=== PATIENT | male | born 1970 | race Hispanic/Latino ===

== ENCOUNTER 2019-06-03 15:53 | Outpatient (CLI) | payer OTHER ==
--- NOTE | 2019-06-03 16:31 | ULT ---
EXAM: US Testicular W Doppler PROVIDED CLINICAL HISTORY: Intermittent scrotal pain for one week. COMPARISON: None FINDINGS: The testicles demonstrate a normal sonographic appearance bilaterally without evidence of a testicula r mass. A homogeneous echotexture is seen involving each testicle. The right testicle measures 5.2 cm x 2.2 cm x 3.8 cm with the left testicle measuring 5.1 cm x 1.8 cm x 3.6 cm. A few tiny anechoic structures are seen in the right epididymis measuring 3 mm with a tiny 4 mm anech oic structure seen in the left epididymis likely representing tiny epididymal cysts. Very small right hydrocele is present. IMPRESSION: 1. Normal appearing bilateral testicles with arterial flow documented in each testicle. Doppler evalu ation of each testicle with spectral analysis and color flow demonstrates arterial flow in each testicle. 2. Tiny bilateral epididymal cysts. 3. Very small right hydrocele.
== END 2019-06-03 15:54 | disposition home or self-care (01) ==
LOC: BICULT 15:53
DX: N50.819 Testicular pain, unspecified (principal); N50.3 Cyst of epididymis; N43.3 Hydrocele, unspecified
CPT/HCPCS: 76870; 93976

== ENCOUNTER 2020-07-04 12:09 | Emergency (ER) | payer OTHER ==
[2020-07-04 19:26] LABS: SARS-CoV-2 MS2 Positive; SARS-CoV-2 N Gene Positive; SARS-CoV-2 S Gene Positive; SARS-CoV-2 by NAA DETECTED (NotDetected); SARS-CoV-2 orf1ab Positive
== END 2020-07-04 12:47 | disposition home or self-care (01) ==
LOC: ERS 12:09
DX: U07.1 COVID-19 (principal); Z87.891 Personal history of nicotine dependence
CPT/HCPCS: 87635; 99283; U0003

== ENCOUNTER 2022-10-21 22:20 | Emergency (ER) | payer OTHER ==
[2022-10-22] MEDS ORDERED: Bupivacaine 0.25% 10 ML VIAL ONE (01:38)
== END 2022-10-22 02:29 | disposition home or self-care (01) ==
LOC: ERS 22:20
DX: T23.222A Burn of second degree of single left finger (nail) except thumb, initial encounter (principal); Z87.891 Personal history of nicotine dependence
CPT/HCPCS: S0020